=== PATIENT | female | born 2000 | race African-American/Black ===

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

== ENCOUNTER 2020-08-06 07:36 | Emergency (ER) | payer OTHER, MEDICAID ==
[~2020-08-06] VITALS: Ht 165.1 cm; Wt 68.0 kg
[2020-08-06 07:42] VITALS: BP 136/88
[2020-08-06 08:33] LABS: Urine Bacteria FEW /hpf (None Seen); Urine Blood Negative /uL (Negative); Urine Specific Gravity 1.014 (1.001-1.035); Urine WBC 5 /hpf (0 - 5)
== END 2020-08-06 09:06 | disposition home or self-care (01) ==
LOC: ER 07:36
DX: N30.00 Acute cystitis without hematuria (principal)
CPT/HCPCS: 81001; 81025

== ENCOUNTER 2021-07-26 04:20 | Emergency (ER) | payer OTHER, MEDICAID ==
[~2021-07-26] VITALS: Ht 165.1 cm; Wt 72.6 kg
[2021-07-26 04:20] VITALS: BP 124/86
== END 2021-07-26 06:26 | disposition left against medical advice (07) ==
LOC: ER 04:20
DX: M54.9 Dorsalgia, unspecified (principal); Z53.21 Procedure and treatment not carried out due to patient leaving prior to being seen by health care provider; W19.XXXA Unspecified fall, initial encounter; Y93.89 Activity, other specified; Y92.89 Other specified places as the place of occurrence of the external cause; Y99.8 Other external cause status

== ENCOUNTER 2023-10-29 22:30 | Emergency (ER) | payer MEDICAID, OTHER ==
[~2023-10-29] VITALS: Ht 160 cm; Wt 77.3 kg
[2023-10-29 22:50] VITALS: O2SAT 98
[2023-10-29] MEDS: ONDANSETRON HCL 4 MG/2 ML VIAL IM ONE (23:43)
[2023-10-29 23:49] VITALS: BP 129/86; PULSE 90; RESP 16
[2023-10-29] MEDS: MORPHINE SULFATE 4 MG/ML SYR/VIAL IM ONE (23:49)
== END 2023-10-29 23:51 | disposition home or self-care (01) ==
LOC: ER 22:30 → EDBD 22:30 → EDSEX 22:30 → ER 23:51
DX: K81.9 Cholecystitis, unspecified (principal)
CPT/HCPCS: 96372; 99284; J2270; J2405